=== PATIENT | male | born 1970 | race Caucasian/White ===

== ENCOUNTER → 2016-08-29 | Day surgery (SDC) | payer OTHER ==
[2016-08-29 07:42] LABS: HCT 46.5 % (42.0-52.0); MCHC 34.4 g/dL (32.0-36.0); MCV 87.2 fL (78.0-100.0); MPV 10.7 fL (6.0-9.5); RBC 5.33 M/uL (4.70-6.00); RDW 14.9 % (11.5-14.0); WBC 9.4 K/uL (4.0-10.5)
[2016-08-29 08:16] LABS: ALBUMIN 4.9 g/dL (3.5-5.0); BILIRUBIN - TOTAL 0.7 mg/dL (0.1-1.0); GLOBULIN (CALCULATION) 2.9 g/dL (2.2-4.2); TOTAL PROTEIN 7.8 g/dL (6.4-8.3)
[2016-08-29 08:31] LABS: CREATININE 0.9 mg/dL (0.7-1.2)
== END | disposition home or self-care (01) ==
LOC: FAS 06:57
PROVIDERS: Surgery
DX: K62.1 Rectal polyp (principal); K57.30 Diverticulosis of large intestine without perforation or abscess without bleeding; I10 Essential (primary) hypertension; Z88.0 Allergy status to penicillin; Z90.49 Acquired absence of other specified parts of digestive tract; Z82.49 Family history of ischemic heart disease and other diseases of the circulatory system; Z79.899 Other long term (current) drug therapy; Z98.890 Other specified postprocedural states
CPT/HCPCS: 36415; 80053; 88305; J2704